=== PATIENT | female | born 1960 | race American Indian/Alaskan Native ===

== ENCOUNTER 2017-09-18 14:39 | Outpatient (CLI) | payer MEDICARE ==
--- NOTE | 2017-09-22 08:41 | Magnetic Resonance Report ---
MR LOWER EXTREMITY NON-JOINT LEFT WITHOUT CONTRAST HISTORY: Left leg pain TECHNIQUE: Multisequence, multiplanar MRI without contrast from the left knee to the left ankle. Fat suppression technique was utilized. COMPARISON: No relevant comparisons at this facility. FINDINGS: This examination is severely limited due to the patient's body habitus. The patient has bowed legs and it was difficult to adequately position the patient within the MR machine. The images are limited but adequate. There is a subtle indistinct area of bone marrow edema in the mid to distal tibial shaft. There is subtle periosteal thickening anteriorly at this level. There is mild overlying soft tissue edema as well. A subtle linear fracture line is suspected on the T1 images. This appears to represent a stress fracture. No associated mass is detected. Early osteomyelitis could be considered but is thought less likely. The remainder of the left tibia and the fibula are within normal limits. There is moderate fatty atrophy of the gastrocnemius muscle. No soft tissue abscess or past inflammatory changes. The visualized musculotendinous structures are unremarkable. IMPRESSION: Limited exam as described. There is a subtle area of bone marrow edema in the tibial shaft most suggestive of a stress fracture. See above. Early osteomyelitis could also be considered but is thought less likely. Please correlate with the patient's clinical presentation.
== END 2017-09-18 14:40 | disposition home or self-care (01) ==
LOC: MRI 14:39
DX: M62.562 Muscle wasting and atrophy, not elsewhere classified, left lower leg (principal); M79.605 Pain in left leg; R60.0 Localized edema

== ENCOUNTER 2021-06-13 16:27 | Emergency (ER) | payer MEDICARE ==
[2021-06-13] MEDS ORDERED: LIDOCAINE (1%) 10 MG/1 ML VIAL 20 ML MDV INFILTRATI ONE (19:10)
--- NOTE | 2021-06-13 19:44 | Emergency Department Report ---
- General Chief complaint: Skin/Abscess/Foreign Body Stated complaint: LEG PAINS Time Seen by Provider: 06/13/21 19:05 Source: patient Mode of arrival: Ambulatory Limitations: No Limitations - History of Present Illness Initial comments: Patient is a 61-year-old female presents emergency room with complaints of left middle finger infection that began a few days ago. She states that last week she went to the nail salon and had a manicure and she believes that he caught her nail down too low. She states then she started having swelling and pain in her finger. She states that she has had this once in the past several years ago. She denies any drainage, fever, vomiting, numbness, weakness. No past medical history. No allergies to medicines. - Related Data Previous Rx's Medication Instructions Recorded Last Taken Type Ciprofloxacin HCl [Ciprofloxacin 500 mg PO Q12HR #14 tab 09/01/15 Unknown Rx TAB] Acetaminophen/Codeine [Tylenol 1 tab PO Q6H PRN #10 tab 06/13/21 Unknown Rx /Codeine # 3 tab] Sulfamethoxazole/Trimethoprim 1 each PO BID 7 Days #14 tablet 06/13/21 Unknown Rx [Bactrim DS TAB] Allergies Allergy/AdvReac Type Severity Reaction Status Date / Time aspirin Allergy burning Verified 09/01/15 15:47 Abscess Boil HPI - HPI Chief Complaint: Skin/Abscess/Foreign Body Stated Complaint: LEG PAINS Time Seen by Provider: 06/13/21 19:05 Home Medications: Previous Rx's Medication Instructions Recorded Last Taken Type Ciprofloxacin HCl [Ciprofloxacin 500 mg PO Q12HR #14 tab 09/01/15 Unknown Rx TAB] Acetaminophen/Codeine [Tylenol 1 tab PO Q6H PRN #10 tab 06/13/21 Unknown Rx /Codeine # 3 tab] Sulfamethoxazole/Trimethoprim 1 each PO BID 7 Days #14 tablet 06/13/21 Unknown Rx [Bactrim DS TAB] Allergies/Adverse Reactions: Allergies Allergy/AdvReac Type Severity Reaction Status Date / Time aspirin Allergy burning Verified 09/01/15 15:47 ED Review of Systems ROS: Stated complaint: LEG PAINS Other details as noted in HPI Comment: All other systems reviewed and negative ED Past Medical Hx - Past Medical History Previous Medical History?: No - Surgical History Past Surgical History?: Yes Hx Cholecystectomy: Yes Additional Surgical History: ectopic - Social History Smoking Status: Never Smoker Substance Use Type: None - Medications Home Medications: Home Medications Medication Instructions Recorded Confirmed Last Taken Type Ciprofloxacin HCl [Ciprofloxacin 500 mg PO Q12HR #14 tab 09/01/15 Unknown Rx TAB] Acetaminophen/Codeine [Tylenol 1 tab PO Q6H PRN #10 tab 06/13/21 Unknown Rx /Codeine # 3 tab] Sulfamethoxazole/Trimethoprim 1 each PO BID 7 Days #14 tablet 06/13/21 Unknown Rx [Bactrim DS TAB] ED Physical Exam - General Limitations: No Limitations General appearance: alert, in no apparent distress - Head Head exam: Present: atraumatic, normocephalic - Eye Eye exam: Present: normal appearance - ENT ENT exam: Present: mucous membranes moist - Neurological Exam Neurological exam: Present: alert, oriented X3 - Psychiatric Psychiatric exam: Present: normal affect, normal mood - Skin Skin exam: Present: warm, dry, other (there is induration and fluctuance present to the left middle finger nail bed, there is mild edema of the distal left middle finger, neurovascularly intact, slight decreased ROM secondary to swelling, no pain with ROM ) ED Course Vital Signs 06/13/21 17:34 Temperature 98.6 F Pulse Rate 100 H Respiratory 18 Rate Blood Pressure 178/115 [Right] O2 Sat by Pulse 99 Oximetry - I & D Left Finger Type of Procedure: Simple Site: left middle finger Blade Size: 11 I & D Procedure: betadine prep, sterile drapes applied, sterile dressing applied Progress: Verbal consent obtained by patient I&D of the left middle finger paronychia Betadine prep, sterile drapes applied, 6 cc of 1% lidocaine without epinephrine used as digital block, aspirated to make sure not in the vessel, 11 blade used to make a 1 cm incision, small amount of purulent drainage expressed, irrigated with saline, patient tolerated well, no complications, bleeding controlled, sterile dressing applied ED Medical Decision Making - Medical Decision Making Patient is a 61-year-old female presents emergency room with complaints of left middle finger infection that began a few days ago. She states that last week she went to the nail salon and had a manicure and she believes that he caught her nail down too low. She states then she started having swelling and pain in her finger. She states that she has had this once in the past several years ago. She denies any drainage, fever, vomiting, numbness, weakness. No past medical history. No allergies to medicines. vss. on exam: there is induration and fluctuance present to the left middle finger nail bed, there is mild edema of the distal left middle finger, neurovascularly intact, slight decreased ROM secondary to swelling, no pain with ROM. Examination appears consistent with paronychia, I&D performed per procedure note. Patient given prescription for medication. Advised patient Please take medication as prescribed. Do not drive or operate heavy machinery while taking pain medication. Follow-up with your primary care doctor for reexamination. Return to emergency room for any new or symptoms. Critical care attestation.: If time is entered above; I have spent that time in minutes in the direct care of this critically ill patient, excluding procedure time. ED Disposition Clinical Impression: Paronychia Disposition: DC- TO HOME OR SELFCARE Is pt being admited?: No Does the pt Need Aspirin: No Condition: Stable Instructions: Paronychia Additional Instructions: Please take medication as prescribed. Do not drive or operate heavy machinery while taking pain medication. Follow-up with your primary care doctor for reexamination. Return to emergency room for any new or symptoms. Prescriptions: Sulfamethoxazole/Trimethoprim [Bactrim DS TAB] 1 each PO BID 7 Days #14 tablet Acetaminophen/Codeine [Tylenol /Codeine # 3 tab] 1 tab PO Q6H PRN #10 tab PRN Reason: pain Referrals: your, primary care doctor [Other] - 2-3 Days Time of Disposition: 19:43 Print Language: ARMENIAN
[2021-06-14 07:41] VITALS: BP 153/83
== END 2021-06-13 20:05 | disposition home or self-care (01) ==
LOC: ED 16:27
DX: L03.012 Cellulitis of left finger (principal); Z90.49 Acquired absence of other specified parts of digestive tract; Z79.899 Other long term (current) drug therapy; Z88.8 Allergy status to other drugs, medicaments and biological substances